=== PATIENT | female | born 1980 | race Caucasian/White ===

== ENCOUNTER 2018-01-24 14:00 | Inpatient (IN) | payer BC ==
--- NOTE | 2018-01-24 14:32 | HP ---
General Information - Reason for Visit IUP at 40-4/7 in labor - General Information Maternal Age: 33 Grav: 1 Para: 0 SAB: 0 IEA: 0 Estimated Due Date: 12/31/13 Determined By: LMP Maternal Blood Type and Rh: A Positive - Results this Serology/RPR Result: Non-Reactive Rubella Result: Immune HBsAg Result: Negative HIV Result: Negative GBS Culture Result: Negative Past Medical History Delivery History: Hx Uncomplicated Vaginal Delivery Delivery History Comment: 12/2013 liveborn 6lb 5oz female "Arlene" at [facility] with Dhaval Genao CNM 04/2016 liveborn male at 23 weeks with Trisomy 18 at [facility]. not long after delivery Pertinent Past Medical History: See Records Past Medical History Comment: Asthma - on multiple medications. Followed by PCP Hypothyroid - on replacement H/O Migraine - no recent symptoms Bone Tumor - Right femur Eczema Back Pain Environmental Allergies Pertinent Past Surgical History: See Records Past Surgical History Comment: 2010 Zenon placed in right femur, bone biopsy. Diagnosed with fibrous dysplasia 2005 Breast augmentation 2001 Tonsillectomy and abscess removal Pertinent Family History: See Records Family History Comment: Father: Seizure disorder, high cholesterol, HTN, blood clots in legs and lungs Mother: Hypothyroid, Migraine, Osteopenia Son 1: Trisomy 18, Sister: Asthma PGM: . Cervical cancer PGF: . Leukemia MGM: . Stroke. H/O DM, Colon cancer MGF: . CAD - Antepartal Records Antepartal Records: Reviewed, Uncomplicated Review of Systems Constitutional: Uncomfortable - with UCs CV Complaint: No Respiratory: Shortness of Breath: No - Hx asthma. Well controlled on meds Gastrointestinal: No Nausea/Vomiting, Normal Bowel Movement Genitourinary: No Dysuria, No Bleeding, No Leaking Fluid Musculoskeletal: Contractions Neurological: No Headache, No Visual Changes Movement: Normal Exam Allergies/Adverse Reactions: Allergies MS Amoxicillin [Amoxicillin] Allergy (Verified 10/31/12 19:55) Rash BP 138/70 HR 70 SpO2 100 % on RA - Measurements Height: 5 ft 4.75 in Weight: 181 lb Body Mass Index (BMI): 30.3 Pre- Weight: 160 lb - Exam Breast: Breast Exam Deferred CVA: No CVA Tenderness Extremities: No Edema Heart: Normal Rhythm/Heart Sounds HEENT: No Significant Findings Lungs: Clear Bilaterally Rectal: Rectal Exam Deferred Reflexes: DTR 2+ Thyroid: No Thyromegaly - Abdominal Exam Abdomen Exam: Non-Tender - Ultrasound/Biophysical Profile Ultrasound Status: Not Done Targeted Exam Findings See L&D Outpatient Visit Provider Note for Findings: N/A Estimated Weight: EFW 6.5-7lbs by Daly Cervical Exam: 5cm Effacement: 80% Presenting Part: Vertex Membrane Status: Intact Sterile Speculum Exam: Not done Bleeding/Discharge: None EFM Findings - External Monitor Findings Baseline Heart Rate: 125 External Monitor Findings: Accelerations Present, No Pattern of Variable or Late Decelerations, Variability Moderate, Baseline Stable External Monitor Findings Comment: No evidence of metabolic acidemia Contractions: Regular, Moderate, 45-90 Seconds Contraction Frequency: q 2-3 min Assessment/Plan - Assessment IUP at 40-4/7 in early active labor - Plan Plan Comment: P: Admit. Pt undecided about pain relief in labor but consents to IV placement in case she requests something. May be interested in nitrous oxide. Will request PRN. Consider amniotomy PRN. Anticipate . - Date/Time of Admission Date of Admission: 01/24/18 Time of Admission: 14:41
[2018-01-24 15:46] LABS: ABS Basophils 0.1 10^3/ul (0-0.2); ABS Eosinophils 0 10^3/ul (0-0.6); ABS Lymphocytes 1.7 10^3/ul (1.0-4.8); ABS Monocytes 0.7 10^3/ul (0-0.8); ABS Neutrophils 8.1 10^3/ul (1.5-7.7); ABS Nucleated RBC 0 10^3/ul; Eosinophil % 0.2 % (0-6); Hematocrit 37 % (35-47); Hemoglobin 12.4 g/dl (12.0-16.0); Lymphocyte % 16.2 % (25-47); Mean Corpuscular HGB Conc 34 g/dl (31-36); Mean Corpuscular Hemoglobin 30 pg (27-31); Mean Corpuscular Volume 89 fL (80-97); Nucleated Red Blood Cells % 0; Platelet Count 293 10^3/ul (150-450); Red Blood Count 4.16 10^6/ul (4.00-5.40); Red Cell Distribution Width 16 % (10.5-15); White Blood Count 10.6 10^3/ul (3.5-10.8)
[2018-01-24] MEDS ORDERED: fentaNYL* 50 MCG/ML 2 ML VIAL (100 MCG VIAL) ONE (15:47)
--- NOTE | 2018-01-24 15:48 | PN ---
Progress Note - Progress Note Date of Service: 01/24/18 Note: S: Pt much more uncomfortable. Would like to discuss pain mgmt. Interested in ITF if far enough along O: VSS FHT 125. +Accel with last doptone UCs q 2-3 min. Moderate to firm VE: 7cm/100%/vtx -1 A: IUP at 40-4/7 in active labor No evidence of metabolic acidemia P: Anesthesia paged for consult.
[2018-01-24] MEDS ORDERED: Sodium Citrate/Citric Acid* 15 ML UDC PO PRN (16:26)
[2018-01-24] MEDS ORDERED: Phenylephrine IV* 40 MCG/ML 10 ML SYRINGE IV PUSH PRN (16:26)
[2018-01-24] MEDS ORDERED: Famotidine TAB* 20 MG PO PRN (16:26)
--- NOTE | 2018-01-24 17:47 | PROCNOTE ---
[facility]: Delivery Note - Delivery A Date of : 01/24/18 Time of : 16:58 [place] Sex: Male Score 1 Minute: 9 Score 5 Minutes: 9 Gestational Age in Weeks and Days at Delivery: 40 Weeks and 4 Days Delivery Method: Spontaneous Vaginal Labor: Spontaneous Did Patient attempt ?: N/A, No Previous Amniotic Fluid: Clear Estimated Blood Loss: 300 Anesthesia/Analgesia: ITF/Spinal for Labor Anesthesia Comment: Dr. Gracia Delivered By: Dhaval Genao - Nursery Level of Nursery: Regular/Bedside - Perineum Perineal Injury: 2nd Degree - Repaired with 3-0 Rapide and 3-0 Vicryl under local infiltration 1% lidocaine and ITF. Pt tolerated well Perineal Repair: By Delivering Practioner - Events Delivery Events of Note: None Apply - Additional Delivery Notes Additional Delivery Notes: Pt admitted in labor. Received ITF in labor with excellent relief. Amniotomy to clear fluid. Active phase 3 hours, 3 min. Pushed x 14 min. liveborn male. Slow, controlled delivery of head. OA to KISHA. Nuchal cord x 1. [place] somersaulted through. [place] vigorous with spontaneous cry. HR>110bpm. Delivered to maternal abdomen. Apgars 9/9. Spontaneous delivery intact placenta. Membranes complete. Fundus firm to massage and remained firm. Repair as above. EBL 300mL. At time of note mother and in stable condition. Planning to breast feed.
[2018-01-24] MEDS ORDERED: Acetaminophen TAB* 325 MG PO PRN (17:54)
[2018-01-24] MEDS ORDERED: Glycerin ADULT SUPP PR PRN (17:54)
[2018-01-24] MEDS ORDERED: Witch Hazel PAD* JAR TOPICAL PRN (17:54)
[2018-01-24] MEDS ORDERED: Dibucaine 1% 28.35 GM TUBE PR PRN (17:54)
[2018-01-24] MEDS: Ibuprofen TAB* 600 MG PO PRN (18:25)
[2018-01-24] MEDS ORDERED: Mometasone/Formoter 200/5 MDI INH SCH (21:00)
[2018-01-24] MEDS ORDERED: Simethicone TAB* 80 MG TAB.CHEW PO SCH (21:00)
[2018-01-24] MEDS: Docusate CAP* 100 MG PO SCH (21:34)
[2018-01-25] MEDS: Ibuprofen TAB* 600 MG PO PRN ×4 (00:07→22:29)
[2018-01-25] MEDS: Levothyroxine TAB* 50 MCG TAB PO SCH (06:10)
[2018-01-25 06:59] LABS: ABS Basophils 0 10^3/ul (0-0.2); ABS Eosinophils 0 10^3/ul (0-0.6); ABS Lymphocytes 1.7 10^3/ul (1.0-4.8); ABS Monocytes 0.8 10^3/ul (0-0.8); ABS Neutrophils 7.4 10^3/ul (1.5-7.7); ABS Nucleated RBC 0 10^3/ul; Eosinophil % 0.3 % (0-6); Hematocrit 28 % (35-47); Hemoglobin 9.4 g/dl (12.0-16.0); Lymphocyte % 17.4 % (25-47); Mean Corpuscular HGB Conc 34 g/dl (31-36); Mean Corpuscular Hemoglobin 30 pg (27-31); Mean Corpuscular Volume 87 fL (80-97); Mean Platelet Volume 8.8 fL (7.4-10.4); Nucleated Red Blood Cells % 0; Platelet Count 209 10^3/ul (150-450); Red Blood Count 3.17 10^6/ul (4.00-5.40); Red Cell Distribution Width 15 % (10.5-15)
[2018-01-25] MEDS ORDERED: Cetirizine* 10 MG TAB PO SCH (09:00)
[2018-01-25] MEDS: Ferrous Gluconate TAB* 324 MG TAB PO SCH ×2 (10:26→22:30)
[2018-01-25] MEDS: Docusate CAP* 100 MG PO SCH ×3 (10:26→22:29)
[2018-01-25] MEDS: PTO:Budesonide/Formote 160/4.5(NF) MDI INH SCH ×2 (10:30→22:30)
[2018-01-25] MEDS: Montelukast Sodium TAB* 10 MG PO SCH (10:45)
[2018-01-26] MEDS: Levothyroxine TAB* 50 MCG TAB PO SCH (07:19)
[2018-01-26 08:00] VITALS: BP 106/54
[2018-01-26] MEDS: PTO:Budesonide/Formote 160/4.5(NF) MDI INH SCH (08:54)
[2018-01-26] MEDS: Montelukast Sodium TAB* 10 MG PO SCH (08:57)
[2018-01-26] MEDS: Ibuprofen TAB* 600 MG PO PRN (08:57)
[2018-01-26] MEDS: Docusate CAP* 100 MG PO SCH (08:57)
[2018-01-26] MEDS: Ferrous Gluconate TAB* 324 MG TAB PO SCH (08:57)
== END 2018-01-26 14:07 | disposition home or self-care (01) | DRG 560 ==
LOC: MCHOBOUT 14:00 → MCHOB 14:19
PROVIDERS: ADMIT Midwife; ATTEND Midwife
PROC: 10907ZC Drainage of Amniotic Fluid, Therapeutic from Products of Conception, Via Natural or Artificial Opening (ICD-10-PCS; principal; 2018-01-24)
PROC: 4A1HXCZ Monitoring of Products of Conception, Cardiac Rate, External Approach (ICD-10-PCS; 2018-01-24)
PROC: 0KQM0ZZ Repair Perineum Muscle, Open Approach (ICD-10-PCS; 2018-01-24)
PROC: 10E0XZZ Delivery of Products of Conception, External Approach (ICD-10-PCS; 2018-01-24)
DX: O48.0 Post-term pregnancy (principal); Z37.0 Single live birth; O99.52 Diseases of the respiratory system complicating childbirth; O99.284 Endocrine, nutritional and metabolic diseases complicating childbirth; E03.9 Hypothyroidism, unspecified; O69.1XX0 Labor and delivery complicated by cord around neck, with compression, not applicable or unspecified; J45.909 Unspecified asthma, uncomplicated; O90.81 Anemia of the puerperium; O70.1 Second degree perineal laceration during delivery; Z3A.40 40 weeks gestation of pregnancy; Z88.0 Allergy status to penicillin
CPT/HCPCS: 36415; 85025; 86850; 86900; 86901; A9270-GY; J3010